=== PATIENT | male | born 1970 | race Caucasian/White ===

== ENCOUNTER 2017-06-23 03:59 | Emergency (ER) | payer MEDICAID, OTHER, SELFPAY ==
[2017-06-23 04:41] VITALS: BP 142/82
--- NOTE | 2017-06-23 05:52 | EDM.PDOC ---
ED HPI GENERAL MEDICAL PROBLEM - General Chief Complaint: Skin Complaint Stated Complaint: BOTH LEGS HURT Time Seen by Provider: 06/23/17 05:10 Source of Information: Reports: Patient, Family History Limitations: Reports: No Limitations - History of Present Illness INITIAL COMMENTS - FREE TEXT/NARRATIVE: c/o itching and burning skin x 2d seen in office yesterday for rash on feet and ankles, given amoxillin, has taken 2 doses, getting worse, itch and burn all over including groin and trunk, less so on arms and head and neck pt says he has been "partying", using THC, thinks he has "been exposed to a chemical" no n/v, no f/c/d here with mother kelsey feet Pain Score (Numeric/FACES): 4 - Related Data Allergies Allergy/AdvReac Type Severity Reaction Status Date / Time No Known Allergies Allergy Verified 02/22/15 02:04 Home Meds: Home Meds Gabapentin [Gabapentin] 200 mg PO BID 02/22/15 [History] Omeprazole Magnesium [Prilosec Otc] 1 tab PO DAILY 06/02/16 [History] chlordiazePOXIDE [Librium] 10 mg PO QID #6 cap 07/26/16 [Rx] Amoxicillin 500 mg PO ASDIRECTED 06/23/17 [History] Loratadine 10 mg PO DAILY #20 tablet 06/23/17 [Rx] Permethrin [Nix] 60 ml TP ONETIME #60 liquid 06/23/17 [Rx] Propranolol HCl 40 mg PO DAILY 06/23/17 [History] predniSONE [Prednisone] 20 mg PO DAILY #7 tablet 06/23/17 [Rx] Past Medical History - Past Health History Medical/Surgical History: Denies Medical/Surgical History Gastrointestinal History: Reports: Cirrhosis, GI Bleed, PUD Neurological History: Reports: Neuropathy, Peripheral Psychiatric History: Reports: Addiction, Anxiety, Depression, Psych Hospitalization(s) Other Psychiatric History: Hx ETOH abuse, has been in tx x 1. Hematologic History: Reports: Blood Transfusion(s) - Infectious Disease History Infectious Disease History: Reports: Chicken Pox, Hepatitis C - Past Surgical History GI Surgical History: Reports: Colonoscopy, EGD Social & Family History - Tobacco Use Smoking Status *Q: Current Every Day Smoker Years of Tobacco use: 30 Packs/Tins Daily: 1 - Caffeine Use Caffeine Use: Reports: Coffee - Alcohol Use Days Per Week of Alcohol Use: 7 Number of Drinks Per Day: 10 Total Drinks Per Week: 70 - Recreational Drug Use Recreational Drug Use: Yes Drug Use in Last 12 Months: Yes Recreational Drug Type: Reports: Marijuana/Hashish Recreational Drug Use Frequency: Daily ED ROS GENERAL - Review of Systems Review Of Systems: See Below Constitutional: Reports: No Symptoms HEENT: Reports: No Symptoms Respiratory: Reports: No Symptoms Cardiovascular: Reports: No Symptoms Endocrine: Reports: No Symptoms GI/Abdominal: Reports: No Symptoms : Reports: No Symptoms Musculoskeletal: Reports: No Symptoms Skin: Reports: Pruritis, Rash Neurological: Reports: No Symptoms Psychiatric: Reports: No Symptoms Hematologic/Lymphatic: Reports: No Symptoms Immunologic: Reports: No Symptoms ED EXAM, SKIN/RASH Exam: See Below Exam Limited By: No Limitations General Appearance: Alert, WD/WN, No Apparent Distress Ears: Normal External Exam, Hearing Grossly Normal Nose: Normal Inspection, Normal Mucosa, No Blood Throat/Mouth: Normal Inspection, Normal Lips, Normal Gums, Normal Oropharynx, Normal Voice, No Airway Compromise Head: Atraumatic, Normocephalic Respiratory/Chest: No Respiratory Distress, Lungs Clear, Normal Breath Sounds, No Accessory Muscle Use, Chest Non-Tender Cardiovascular: Regular Rate, Rhythm, No Edema, No Rub, Other (2/6 PETRA at LSB) GI/Abdominal: Other (may have a small direct inguinal hernia b/l, symmetric) Extremities: Non-Tender, No Pedal Edema Neurological: Alert, Oriented, CN II-XII Intact, Normal Cognition, No Motor/ Sensory Deficits Psychiatric: Normal Affect, Normal Mood Skin: Other (dermatographism present on back, has old excoriation jenkins on all extremities, has scattered small 1 mm red macules across back where he cannot scratch, may be small burrows altho hard to say with certainty, not present in inguinal area, ankles and dorsum of head with brighter red macular rash that has been excoriated without warmth or consolidation of cellulitis, symmetric, a few scattered macules on soles of feet b/l) Course - Vital Signs Last Recorded V/S: Last Vital Signs Temp 36.8 C 06/23/17 04:15 Pulse 113 H 06/23/17 04:15 Resp 18 06/23/17 04:15 BP 142/82 H 06/23/17 04:15 Pulse Ox 96 11/03/17 04:15 - Re-Assessments/Exams Free Text/Narrative Re-Assessment/Exam: 06/23/17 05:53 no nits present in hair, no evidence pediculosis, may be allergic reaction to a chemical exposure, however cannot exclude atypical scabies, will tx accordingly Departure - Departure Time of Disposition: 05:55 Disposition: Home, Self-Care 01 Condition: Good Clinical Impression: Allergic dermatitis, Pruritic rash, Infestation by Sarcoptes scabiei - Discharge Information Prescriptions: Loratadine 10 mg PO DAILY #20 tablet Permethrin [Nix] 60 ml TP ONETIME #60 liquid predniSONE [Prednisone] 20 mg PO DAILY #7 tablet Instructions: Pruritus, Scabies, Adult Referrals: Dandre Lang MD [Primary Care Provider] - Forms: ED Department Discharge Additional Instructions: For allergy and itching, take loratadine 10 mg 1 tab daily for 20 days. For allergy and itching, take prednisone 20 mg 1 tab daily for 7 days. For possible scabies (mites), thoroughly massage permethrim cream (Nix or Rid) from head to soles of feet; leave on for 8 to 14 hours before removing (shower or bath); also apply on the hairline, neck, scalp, protestant, and forehead. See your doctor in 3-4 days. You may stop the amoxicillin. Call your Physician or Return to Emergency Department if: * Your condition worsens in any way. * You have pain that is not controlled with medications.
[2017-06-23] MEDS ORDERED: methylPREDNISolone Sodium Succinate 125 MG/2 ML SDV IM ONE (05:54)
== END 2017-06-23 06:10 | disposition home or self-care (01) ==
LOC: FB.ED 03:59
DX: L23.9 Allergic contact dermatitis, unspecified cause (principal); L29.9 Pruritus, unspecified; B86 Scabies; F17.210 Nicotine dependence, cigarettes, uncomplicated; Z79.899 Other long term (current) drug therapy
CPT/HCPCS: 96372; 99282; J2930; 99283

== ENCOUNTER 2017-06-24 04:54 | Emergency (ER) | payer OTHER, SELFPAY ==
--- NOTE | 2017-06-24 06:35 | EDM.PDOC ---
ED HPI GENERAL MEDICAL PROBLEM - General Chief Complaint: Behavioral/Psych Time Seen by Provider: 06/24/17 06:29 Source of Information: Reports: Patient, Family History Limitations: Reports: No Limitations - History of Present Illness INITIAL COMMENTS - FREE TEXT/NARRATIVE: c/o skin irritation pt continues with irritation of his skin, he is taking the prednisone and loratadine and is showing a nice improvement in his allergic dermatitis altho there is still some redness from when I saw him in ED 2d ago he is an alcoholic, used THC and other drugs 3d ago altho says he has not "partied" since here with his mother, who came in 2d ago as well she reports that he is an alcoholic, no SI/HI, has been tx'ed for alcohol with counselor in [place] I suggested a mental health evaluation altho she declined and said she preferred to speak his PCP Dr Lang in 2d if necessary mom said that she would prefer to take him to [place] pt was picking at his skin, did pull something from his skin and said "see, this is running through my veins", there was nothing in his fingers kelsey legs Pain Score (Numeric/FACES): 9 - Related Data Allergies Allergy/AdvReac Type Severity Reaction Status Date / Time No Known Allergies Allergy Verified 06/24/17 05:09 Home Meds: Home Meds Gabapentin [Gabapentin] 200 mg PO BID 02/22/15 [History] Omeprazole Magnesium [Prilosec Otc] 1 tab PO DAILY 06/02/16 [History] chlordiazePOXIDE [Librium] 10 mg PO QID #6 cap 07/26/16 [Rx] Amoxicillin 500 mg PO ASDIRECTED 06/23/17 [History] Loratadine 10 mg PO DAILY #20 tablet 06/23/17 [Rx] Permethrin [Nix] 60 ml TP ONETIME #60 liquid 06/23/17 [Rx] Propranolol HCl 40 mg PO DAILY 06/23/17 [History] predniSONE [Prednisone] 20 mg PO DAILY #7 tablet 06/23/17 [Rx] Past Medical History - Past Health History Medical/Surgical History: Denies Medical/Surgical History Cardiovascular History: Reports: Hypertension Gastrointestinal History: Reports: Cirrhosis, GI Bleed, PUD Neurological History: Reports: Neuropathy, Peripheral Psychiatric History: Reports: Addiction, Anxiety, Depression, Hallucinations, Psych Hospitalization(s) Other Psychiatric History: Hx ETOH abuse, has been in tx x 1. Hematologic History: Reports: Blood Transfusion(s) - Infectious Disease History Infectious Disease History: Reports: Chicken Pox, Hepatitis C - Past Surgical History GI Surgical History: Reports: Colonoscopy, EGD Social & Family History - Family History Family Medical History: Unobtainable - Tobacco Use Smoking Status *Q: Current Every Day Smoker Years of Tobacco use: 20 Packs/Tins Daily: 1 - Caffeine Use Caffeine Use: Reports: Coffee, Soda - Alcohol Use Days Per Week of Alcohol Use: 7 Number of Drinks Per Day: 10 Total Drinks Per Week: 70 - Recreational Drug Use Recreational Drug Use: Yes Drug Use in Last 12 Months: Yes Recreational Drug Type: Reports: Marijuana/Hashish Recreational Drug Use Frequency: Socially ED ROS GENERAL - Review of Systems Review Of Systems: See Below Constitutional: Reports: No Symptoms HEENT: Reports: No Symptoms Respiratory: Reports: No Symptoms Cardiovascular: Reports: No Symptoms Endocrine: Reports: No Symptoms GI/Abdominal: Reports: No Symptoms : Reports: No Symptoms Musculoskeletal: Reports: No Symptoms Skin: Reports: Pruritis, Rash Neurological: Reports: No Symptoms Psychiatric: Reports: No Symptoms Hematologic/Lymphatic: Reports: No Symptoms Immunologic: Reports: No Symptoms - Physical Exam Exam: See Below Exam Limited By: Altered Mental Status General Appearance: Alert, Mild Distress Neck: Normal Inspection, Supple Respiratory/Chest: No Respiratory Distress Cardiovascular: Regular Rate, Rhythm GI/Abdominal: Soft, Non-Tender Back Exam: Normal Inspection Extremities: Normal Inspection, Normal Range of Motion Psychiatric: Anxious, Other (no SI/HI, picking at skin) Skin Exam: Other (red rash on feet and ext x 4 and back is better, about 50% left, still faint dermatographism of back but about 50% less intense) Course - Vital Signs Last Recorded V/S: Last Vital Signs Temp 36.8 C 06/24/17 04:55 Pulse 92 06/24/17 04:55 Resp 17 06/24/17 04:55 BP 138/90 06/24/17 04:55 Pulse Ox 99 06/24/17 04:55 - Re-Assessments/Exams Free Text/Narrative Re-Assessment/Exam: 06/24/17 06:36 a mental health evaluation and possible involuntary admission would be optimum, however neither pt nor his mother are willing to proceed, currently not a threat to himself or others, does have chemically related mental status change, does not have overt DTs altho may be early stage, vss, spoke with mother further about bringing pt back at any time Departure - Departure Time of Disposition: 06:25 Disposition: Home, Self-Care 01 Condition: Good Clinical Impression: Allergic dermatitis, Dry skin dermatitis, Anxiety, Neurosis - Discharge Information Referrals: PCP,None [Primary Care Provider] - Additional Instructions: Continue the loratadine 10 mg daily for the full 20 days. Continue the prednisone 20 mg daily for 7 days. Use moisturizer or hand lotion on skin 2-3 times a day. See Dr Lang in 2 days. Return to ED if you are feeling worse.
[2017-06-24 06:43] VITALS: BP 122/78
== END 2017-06-24 06:40 | disposition home or self-care (01) ==
LOC: FB.ED 04:54
DX: L85.3 Xerosis cutis (principal); L23.9 Allergic contact dermatitis, unspecified cause; F41.1 Generalized anxiety disorder; I10 Essential (primary) hypertension; F32.9 Major depressive disorder, single episode, unspecified; F17.210 Nicotine dependence, cigarettes, uncomplicated; Z79.899 Other long term (current) drug therapy
CPT/HCPCS: 99284

== ENCOUNTER 2021-08-28 18:05 | Emergency (ER) | payer BC, MEDICAID ==
--- NOTE | 2021-08-28 19:36 | EDM.PDOC ---
ED HPI GENERAL MEDICAL PROBLEM - General Stated Complaint: R WRIST/HAND INJURY Time Seen by Provider: 08/28/21 19:15 Source of Information: Reports: Patient History Limitations: Reports: No Limitations - History of Present Illness INITIAL COMMENTS - FREE TEXT/NARRATIVE: 51-year-old gentleman with a past medical history significant for alcoholism and liver cirrhosis with neuropathy came to the emergency department due to severe right wrist pain. He states he was shoveling snow yesterday and does not know if he may have hurt his wrist while shoveling snow. However, throughout the day today he has had increasing pain, swelling, redness. He came to the emergency department because of significantly increased pain this afternoon. Denies fever, chills, flulike symptoms, chest pain, shortness of breath, change in bowel or bladder habits. Right Wrist Pain Score (Numeric/FACES): 8 - Related Data Allergies Allergy/AdvReac Type Severity Reaction Status Date / Time No Known Allergies Allergy Verified 06/24/17 05:09 Home Meds: Home Meds Gabapentin 200 mg PO BID 02/22/15 [History] Omeprazole Magnesium [Prilosec Otc] 1 tab PO DAILY 06/02/16 [History] chlordiazePOXIDE [Librium] 10 mg PO QID #6 cap 07/26/16 [Rx] Amoxicillin 500 mg PO ASDIRECTED 06/23/17 [History] Loratadine 10 mg PO DAILY #20 tablet 06/23/17 [Rx] Permethrin [Nix] 60 ml TP ONETIME #60 liquid 06/23/17 [Rx] Propranolol HCl 40 mg PO DAILY 06/23/17 [History] predniSONE [Prednisone] 20 mg PO DAILY #7 tablet 06/23/17 [Rx] Past Medical History - Past Health History Medical/Surgical History: Denies Medical/Surgical History Cardiovascular History: Reports: Hypertension Gastrointestinal History: Reports: Cirrhosis, GI Bleed, PUD Neurological History: Reports: Neuropathy, Peripheral Psychiatric History: Reports: Addiction, Anxiety, Depression, Hallucinations, Psych Hospitalization(s) Other Psychiatric History: Hx ETOH abuse, has been in tx x 1. Hematologic History: Reports: Blood Transfusion(s) - Infectious Disease History Infectious Disease History: Reports: Chicken Pox, Hepatitis C - Past Surgical History GI Surgical History: Reports: Colonoscopy, EGD Social & Family History - Family History Family Medical History: Unobtainable - Caffeine Use Caffeine Use: Reports: Coffee, Soda Review of Systems - Review of Systems Review Of Systems: See Below Constitutional: Reports: No Symptoms Eyes: Reports: No Symptoms Ears: Reports: No Symptoms Nose: Reports: No Symptoms Mouth/Throat: Reports: No Symptoms Respiratory: Reports: No Symptoms Cardiovascular: Reports: No Symptoms GI/Abdominal: Reports: No Symptoms Genitourinary: Reports: No Symptoms Musculoskeletal: Reports: Arm Pain, Hand Pain Skin: Reports: No Symptoms Neurological: Reports: Numbness, Paresthesia Psychiatric: Reports: No Symptoms ED EXAM, GENERAL - Physical Exam Exam: See Below Exam Limited By: No Limitations General Appearance: Alert, Anxious Head: Atraumatic, Normocephalic Respiratory/Chest: No Respiratory Distress, Lungs Clear Cardiovascular: Normal Peripheral Pulses, Regular Rate, Rhythm Peripheral Pulses: 2+: Radial (L), Radial (R), Dorsalis Pedis (L), Dorsalis Pedis (R) GI/Abdominal: Normal Bowel Sounds, Soft, Non-Tender Back Exam: Normal Inspection Extremities: Limited Range of Motion, Increased Warmth, Redness, Other (Visual inspection of the bilateral wrist shows swelling with erythema, edema, calor of the right wrist and dorsum of the hand and dorsum of the distal forearm) Neurological: Alert, Oriented, CN II-XII Intact, Normal Cognition Psychiatric: Anxious Skin Exam: Other (Erythema, calor covering the dorsum of the right hand and dorsum of the wrist extending circumferentially around the distal forearm and posteriorly to the mid forearm) Course - Vital Signs Text/Narrative:: Read review of x-ray shows degenerative joint disease. Patient's physical presentation is concerning for septic joint. However, CRP and white blood cell count are normal. Presentation is also concerning for gout. However, uric acid is 5.4. In consultation with emergency room physician via 1 call patient will be transported via private vehicle [facility] for further evaluation. Last Recorded V/S: Last Vital Signs Temp 36.8 C 08/28/21 18:05 Pulse 88 08/28/21 18:05 Resp 18 08/28/21 18:05 BP 144/82 H 08/28/21 18:05 Pulse Ox 94 L 08/28/21 18:05 - Orders/Labs/Meds Orders: Active Orders 24 hr Category Date Time Status Wrist Comp Min 3V Rt [CR] Stat Exams 08/28/21 19:30 Taken Labs: Laboratory Tests 08/28/21 08/28/21 08/28/21 Range/Units 19:45 19:45 19:45 WBC 7.0 (3.2-10.1) x10-3/uL RBC 4.59 (3.90-5.90) x10(6)uL Hgb 13.8 (12.9-17.7) g/dL Hct 41.2 (38.3-50.1) % MCV 89.8 (80.8-98.7) fL MCH 30.0 (27.0-33.3) pg MCHC 33.4 (28.7-35.3) g/dL RDW 13.6 (12.4-15.0) % Plt Count 322 (117-477) x10(3)uL MPV 7.2 (6.7-11.0) fL Neut % (Auto) 65.6 (40.3-71.8) % Lymph % (Auto) 20.9 (15.8-45.3) % [place] % (Auto) 9.0 (5.5-15.2) % Eos % (Auto) 3.5 (0.1-6.8) % Baso % (Auto) 1.0 (0.3-3.8) % Neut # (Auto) 4.6 (1.7-6.9) x10-3/uL Lymph # (Auto) 1.5 (0.5-4.5) x10-3/uL [place] # (Auto) 0.6 (0.0-1.2) x10-3/uL Eos # (Auto) 0.2 (0.0-0.6) x10-3/uL Baso # (Auto) 0.1 (0.0-0.3) x10-3/uL Sodium 139 (135-145) mmol/L Potassium 4.2 (3.5-5.3) mmol/L Chloride 103 (100-110) mmol/L Carbon Dioxide 28 (21-32) mmol/L BUN 12 (7-18) mg/dL Creatinine 0.8 (0.70-1.30) mg/dL Est Cr Clr Drug Dosing TNP Estimated GFR (MDRD) > 60 (>60) BUN/Creatinine Ratio 15.0 (9-20) Glucose 103 (80-116) mg/dL Uric Acid (2.6-6.0) mg/dL Calcium 9.3 (8.6-10.2) mg/dL Total Bilirubin 0.3 (0.1-1.3) mg/dL AST 24 D (5-25) IU/L ALT 34 D (12-36) U/L Alkaline Phosphatase 69 (56-112) IU/L C-Reactive Protein < 0.2 L (0.5-0.9) mg/dL Total Protein 8.5 H (6.0-8.0) g/dL Albumin 3.7 (3.5-5.2) g/dL Globulin 4.8 g/dL Albumin/Globulin Ratio 0.8 08/28/21 Range/Units 19:45 WBC (3.2-10.1) x10-3/uL RBC (3.90-5.90) x10(6)uL Hgb (12.9-17.7) g/dL Hct (38.3-50.1) % MCV (80.8-98.7) fL MCH (27.0-33.3) pg MCHC (28.7-35.3) g/dL RDW (12.4-15.0) % Plt Count (117-477) x10(3)uL MPV (6.7-11.0) fL Neut % (Auto) (40.3-71.8) % Lymph % (Auto) (15.8-45.3) % [place] % (Auto) (5.5-15.2) % Eos % (Auto) (0.1-6.8) % Baso % (Auto) (0.3-3.8) % Neut # (Auto) (1.7-6.9) x10-3/uL Lymph # (Auto) (0.5-4.5) x10-3/uL [place] # (Auto) (0.0-1.2) x10-3/uL Eos # (Auto) (0.0-0.6) x10-3/uL Baso # (Auto) (0.0-0.3) x10-3/uL Sodium (135-145) mmol/L Potassium (3.5-5.3) mmol/L Chloride (100-110) mmol/L Carbon Dioxide (21-32) mmol/L BUN (7-18) mg/dL Creatinine (0.70-1.30) mg/dL Est Cr Clr Drug Dosing Estimated GFR (MDRD) (>60) BUN/Creatinine Ratio (9-20) Glucose (80-116) mg/dL Uric Acid 5.4 (2.6-6.0) mg/dL Calcium (8.6-10.2) mg/dL Total Bilirubin (0.1-1.3) mg/dL AST (5-25) IU/L ALT (12-36) U/L Alkaline Phosphatase (56-112) IU/L C-Reactive Protein (0.5-0.9) mg/dL Total Protein (6.0-8.0) g/dL Albumin (3.5-5.2) g/dL Globulin g/dL Albumin/Globulin Ratio Meds: Medications Discontinued Medications Generic Name Dose Route Start Last Admin Trade Name [place] PRN Reason Stop Dose Admin Hydrocodone Bitart/Acetaminophen 1 tab 08/28/21 21:40 08/28/21 22:02 Acetaminophen/Hydrocodone 325-5 Mg Tab PO 08/28/21 21:41 1 tab ONETIME ONE Administration Departure - Departure Time of Disposition: 22:45 Disposition: Home, Self-Care 01 Condition: Fair Clinical Impression: Inflammatory arthritis - Discharge Information *PRESCRIPTION DRUG MONITORING PROGRAM REVIEWED*: Not Applicable *COPY OF PRESCRIPTION DRUG MONITORING REPORT IN PATIENT ANA: Not Applicable Instructions: Arthritis, [id number] Referrals: Dandre Lang MD [Primary Care Provider] - Additional Instructions: Patient was given 1 [place] 5/325 and 2 ice packs with good relief of pain. I spent several minutes explaining to the patient why it is so important for him to get a proper diagnosis prior to beginning treatment. I explained that he could have continued degradation and degeneration of the joint could even lose the use of his wrist. Patient strongly encouraged to go straight to the emergency room as directed. Sepsis Event Note (ED) - Focused Exam Vital Signs: Vital Signs Temp Pulse Resp BP Pulse Ox 08/28/21 18:05 36.8 C 88 18 144/82 H 94 L - My Orders Last 24 Hours: My Active Orders 08/28/21 19:30 Wrist Comp Min 3V Rt [CR] Stat - Assessment/Plan Last 24 Hours: My Active Orders 08/28/21 19:30 Wrist Comp Min 3V Rt [CR] Stat
[2021-08-28] MEDS ORDERED: Acetaminophen/HYDROcodone 325-5 MG Tab PO ONE (21:40)
[2021-08-29 04:04] VITALS: BP 119/92; PULSE 84
== END 2021-08-28 23:04 ==
LOC: FB.ED 18:05
DX: M19.90 Unspecified osteoarthritis, unspecified site (principal); I10 Essential (primary) hypertension; Z79.899 Other long term (current) drug therapy
CPT/HCPCS: 36415; 73110; 80053; 84550; 85025; 86140; 99284; A9270

== ENCOUNTER 2023-03-27 21:45 | Emergency (ER) | payer MEDICAID ==
[2023-03-27 23:53] LABS: BASOPHILS PERCENT AUTO 0.5 % (0.3-3.8); EOSINOPHILS ABSOLUTE AUTO 0.1 x10-3/uL (0.0-0.6); EOSINOPHILS PERCENT AUTO 1.4 % (0.1-6.8); HEMATOCRIT 39.5 % (38.3-50.1); HEMOGLOBIN 13.4 g/dL (12.9-17.7); MEAN CORPUSCULAR HEMOGLOBIN 30.7 pg (27.0-33.3); MEAN CORPUSCULAR VOLUME 90.2 fL (80.8-98.7); MEAN PLATELET VOLUME 7.7 fL (6.7-11.0); MONOCYTES ABSOLUTE AUTO 0.5 x10-3/uL (0.0-1.2); MONOCYTES PERCENT AUTO 7.3 % (5.5-15.2); NEUTROPHILS ABSOLUTE AUTO 4.9 x10-3/uL (1.7-6.9); NEUTROPHILS PERCENT AUTO 75.8 % (40.3-71.8); PLATELET COUNT,PLT 195 x10(3)uL (117-477); RED BLOOD CELL COUNT 4.38 x10(6)uL (3.90-5.90); RED CELL DISTRIBUTION WIDTH 15.3 % (12.4-15.0); WHITE BLOOD CELL COUNT,WBC 6.4 x10-3/uL (3.2-10.1)
[2023-03-28 09:43] VITALS: BP 114/72; PULSE 80
== END 2023-03-27 23:50 | disposition home or self-care (01) ==
LOC: FB.ED 21:45
DX: T81.9XXA Unspecified complication of procedure, initial encounter (principal); R20.0 Anesthesia of skin; I10 Essential (primary) hypertension; Z79.899 Other long term (current) drug therapy
CPT/HCPCS: 36415; 73090-RT; 85025; 85379; 99282; 99283